=== PATIENT | female | born 1950 | race Caucasian/White ===

== ENCOUNTER 2017-08-13 11:59 | Inpatient (IN) | payer OTHER, MEDICARE ==
[~2017-08-13] VITALS: Ht 165.1 cm; Wt 73.5 kg
--- NOTE | ~2017-08-13 | PROC ---
[address] [address] PROCEDURE REPORT Name: JENNIFER HAJI Room: [address] IN .R.#: [id number] Admission: 08/13/17 Attend Phys: Joe Rainey Discharge: Date of : 50 Report #: [id number] THIS REPORT FOR: //name// For GI report, please see the Provation report in Perceptive 7 content. By: 0644Medical Records Staff [facility] /JANA
[2017-08-13 12:07] VITALS: BP 136/73
[2017-08-13] MEDS ORDERED: IRON325 PO (12:25)
[2017-08-13] MEDS ORDERED: ACID REDUCER20 MG PO (12:25)
[2017-08-13] MEDS ORDERED: SYNTHROID50 MCG PO (12:25)
[2017-08-13] MEDS ORDERED: VITAMINC500 PO (12:26)
[2017-08-13 12:51] LABS: HEMATOCRIT 27.7 % (37.0-47.0); HEMOGLOBIN 8.8 gm/dL (12.0-15.0); MCH 24.6 pg (26.0-34.0); MCHC 31.8 g/dL (28.0-37.0); MCV 77.5 fL (80.0-100.0); MPV 7.5 fl. (7.2-11.1); NUCLEATED RBCS 0 /100WBC; PLATELET COUNT* 371 thou/uL (150-400); RBC 3.57 mil/uL (4.20-5.00); RDW-CV 16.4 % (10.5-14.5); WBC 8.3 thou/uL (4.0-11.0)
[2017-08-13 12:59] LABS: CREATININE 0.8 mg/dL (0.6-1.3)
[2017-08-13 13:04] LABS: ALBUMIN 2.8 g/dL (3.4-5.0); TOTAL BILIRUBIN 0.3 mg/dL (<0.1-1.0); TOTAL PROTEIN 6.7 g/dL (6.4-8.2)
[2017-08-13 13:18] LABS: ABSOLUTE BASOPHILS 0.1 thou/uL (0.0-0.2); ABSOLUTE LYMPHOCYTES 0.7 thou/uL (0.8-5.3); ABSOLUTE MONOCYTES 0.5 thou/uL (0.0-1.2); PLATELET ESTIMATE ADEQUATE
[2017-08-13 13:22] LABS: URINE BILIRUBIN NEGATIVE (Negative); URINE BLOOD NEGATIVE (Negative); URINE CLARITY CLEAR; URINE COLOR YELLOW; URINE GLUCOSE-RANDOM NEGATIVE (Negative); URINE KETONES 1+ (Negative); URINE NITRITE-REFLEX NEGATIVE (Negative); URINE PROTEIN TRACE (Negative); URINE SPECIFIC GRAVITY >= 1.030 (1.005-1.030); URINE UROBILINOGEN 0.2 E.U./dl (0.2-1.0)
[2017-08-13 13:28] LABS: URINE LEUKOCYTES-REFLEX 2+ (Negative)
[2017-08-13 13:35] LABS: CASTS None Seen /LPF (None Seen); CRYSTALS None Seen /LPF (None Seen); MUCUS None Seen strn/LPF (None Seen); SQUAMOUS 0-3 Few /LPF (0-3); URINE RBC 3-10 Few /HPF (0-2)
[2017-08-13 19:47] VITALS: BP 127/64
[2017-08-13] MEDS ORDERED: PROTONIX40 M1 PO (22:32)
[2017-08-14 02:07] LABS: CA 125 29.4 U/mL (0.0-38.1)
[2017-08-14 03:58] VITALS: BP 114/62
--- NOTE | 2017-08-14 04:28 | NUR ---
PT TO FLOOR 1929. ASSESSMENT COMPLETE. PT NPO 0000. PT ON BOWEL PREP FROM ER. DENIES PAIN. PT CURRETLY ON STAND BY ASSIST FOR REPORTS OF DIZZYNESS. MED/SURG STATUS. SEE MAR. SEE CHARTING. VITALS WNL. FALL PRECAUTIONS IN PLACE. HOURLY ROUNDING FOR SAFETY.
[2017-08-14 04:55] LABS: HEMATOCRIT 26.1 % (37.0-47.0); HEMOGLOBIN 8.3 gm/dL (12.0-15.0); MCH 24.6 pg (26.0-34.0); MCHC 31.9 g/dL (28.0-37.0); MCV 77.1 fL (80.0-100.0); MPV 7.7 fl. (7.2-11.1); RBC 3.38 mil/uL (4.20-5.00); RDW-CV 16.5 % (10.5-14.5); WBC 6.9 thou/uL (4.0-11.0)
[2017-08-14 05:14] LABS: CALCIUM 8.5 mg/dL (8.5-10.1); CREATININE 0.8 mg/dL (0.6-1.3); POTASSIUM 3.7 mmol/L (3.5-5.1)
[2017-08-14 05:17] LABS: INR 1.1; PROTIME 10.3 Seconds (9.20-11.50)
[2017-08-14 05:39] LABS: % SATURATION 5 % (20-39); IRON 17 ug/dL (50-175)
[2017-08-14 07:30] VITALS: BP 132/66
--- NOTE | 2017-08-14 11:49 | NUR ---
CM ASSESSMENT: Pt is A&O. Resides at home with dtr. Independent with ADLs, continues to work outside of the home. No DME. No hx of HH or SNF. Planned colonoscopy today. Following for dc needs.
[2017-08-14 12:06] VITALS: BP 132/66
--- NOTE | 2017-08-14 13:45 | NUR ---
RECEIVED PT CARE 0700. PT IS ALERT AND ORIENTED X4. VSS. SHE DENIES ANY SOA. O2 SAT 96% ON ROOM AIR. UP AD SOCRATES IN ROOM WITH BATHROOM PRIVILEDGES. GAIT IS STEADY. PATIENT CONTINUING TO DRINK HER BOWEL PREP THIS AM. GI IN ROOM THIS AM TO SEE PATIENT. NEW ORDERS RECEIVED FOR EGD/COLON TODAY. SOAP SUDS ENEMA GIVEN AND PATIENT'S BOWEL MOVEMENTS ARE LIQUID AND CLEAR PER PATIENT. AM ASSESSMENT CHARTED. MEDS PER MAR. CONSENTS SIGNED AND ARE ON FRONT OF CHART. PATIENT DENIES ANY QUESTIONS OR CONCERNS. PATIENTS DAUGHTER IS AT BEDSIDE AND HELPFUL WITH PATIENTS CARE. PACU TAKING PATIENT AROUND 1400. WILL CONTINUE TO MONITOR.
[2017-08-14 15:29] VITALS: BP 147/77
[2017-08-14 19:50] VITALS: BP 142/61
[2017-08-15 03:54] LABS: ABSOLUTE EOSINOPHILS 0.1 thou/uL (0.0-0.7); ABSOLUTE LYMPHOCYTES 1.1 thou/uL (0.8-5.3); ABSOLUTE MONOCYTES 0.9 thou/uL (0.0-1.2); ABSOLUTE NEUTROPHILS 5.5 thou/uL (1.6-8.1); BASOPHILS 0.5 %; EOSINOPHILS 0.9 %; HEMATOCRIT 25.2 % (37.0-47.0); HEMOGLOBIN 8.1 gm/dL (12.0-15.0); LYMPHOCYTES 14.3 %; MCH 24.6 pg (26.0-34.0); MCHC 32.1 g/dL (28.0-37.0); MCV 76.8 fL (80.0-100.0); MONOCYTES 11.9 %; MPV 7.7 fl. (7.2-11.1); NUCLEATED RBCS 0 /100WBC; PLATELET COUNT* 318 thou/uL (150-400); POLYS 72.4 %; RBC 3.28 mil/uL (4.20-5.00); RDW-CV 16.6 % (10.5-14.5); WBC 7.6 thou/uL (4.0-11.0)
[2017-08-15 04:00] VITALS: BP 116/68
[2017-08-15 04:04] LABS: ALBUMIN 2.3 g/dL (3.4-5.0); CALCIUM 8.4 mg/dL (8.5-10.1); CREATININE 0.7 mg/dL (0.6-1.3); POTASSIUM 3.7 mmol/L (3.5-5.1); TOTAL BILIRUBIN 0.3 mg/dL (<0.1-1.0); TOTAL PROTEIN 5.9 g/dL (6.4-8.2)
--- NOTE | 2017-08-15 05:09 | NUR ---
A&O X4 CALM COOPERITVE, DENIES PAIN, REPORTS ABD DISCOMFORT AT TIMES. UP ADLIB. MEDSURG STATUS. SEE MAR. SEE CHARTING. VITAL WNL. FALL PRECAUTIONS IN PLACE. HOURLY ROUNDING FOR SAFETY.
[2017-08-15 07:30] VITALS: BP 115/65
--- NOTE | 2017-08-15 08:16 | NUR ---
RECIEVED REPORT FROM WILL AND ASSUMED CARE OF PT @ 5285.PT A/O X4,VSS,MED-SURG STATUS,LUNG SOUNDS ARE CLEAR ON ROOM AIR WITH O2 SAT 96%.IV LEFT HAND PATENT WITH NS RUNNING AT 80ML/HR. PT IS CALM AND COOPERATIVE WITH NO C/O PAIN, JUST DISCOMFORT IN ABDOMEN WHEN CHANGING POSITIONS-DOESNT WANT MEDICATION FOR IT. PT IS UP AD SOCRATES IN ROOM TO BATHROOM. PT LEFT RESTING IN BED WITH CALL LIGHT IN PLACE.DISCUSSED PLAN OF CARE WITH UPCOMING SURGERY TODAY AND PT COMMUNICATES UNDERSTANDING. PT MAINTAINS NPO STATUS FOR SURGERY. ABDOMINAL ULTRASOUND COMPLETED.
[2017-08-15 13:30] VITALS: BP 133/81
[2017-08-15 13:51] VITALS: BP 147/77
--- NOTE | 2017-08-15 15:24 | EKG ---
[place] [address] ELECTROCARDIOGRAM REPORT Name: JENNIFER HAJI Room: [address] ADM IN .R.#: [id number] Admission: 08/13/17 Attend Phys: Joe Rainey Discharge: Date of : 50 Report #: [id number] THIS REPORT FOR: //name// [facility] Test Date: 2017-08-15 Test Time: 09:59:08 Pat Name: JENNIFER HAJI Department: Room: [address] Gender: F [employer] Tender: : 1950 Requested By: Romy Yu Order Number: [id number] MD: Neil Juarez Measurements Intervals [place] Rate: 76 P: 44 WI: 150 QRS: 21 QRSD: 94 T: 30 QT: 368 QTc: 414 Interpretive Statements Sinus rhythm Low voltage, precordial leads No previous ECG available for comparison Electronically Signed On 08-15-2017 15:24:37 CDT by Neil Juarez [email or web address] <ELECTRONICALLY SIGNED> By: Neil Juarez MD, [facility] 08/15/17 1524 [id number] [id number] Neil Juarez MD, FACC /EPI
--- NOTE | 2017-08-15 18:29 | NUR ---
VSS.CARDIAC MONITORING IN PLACE WITH NO CHANGES.PT REMAINS ON ROOM AIR.PT PROGRESSING TOWARDS GOALS.SITTER IN PLACE.PT DENIES PAIN THOUGHOUT SHIFT.IV RIGHT HAND D/C DUE TO PT PULLED OUT.IV LEFT HAND D/C DUE TO CLOTTING OFF.PT INOFRMED OF PLAN AND COMMUNICATES UNDERSTANDING.PT REMIANS ANXIOUS,IMPULSIVE,WITH FLIGHT OF THOUGHTS.PT AMBULATES IN ROOM AND TO BATHROOM.HOURLY ROUNDING COMPLETED FOR PT SAFETY.CALL LIGHT IN REACH.WILL CONTINUE TO MONITOR FOR DURATION OF SHIFT.
--- NOTE | 2017-08-15 18:41 | NUR ---
PT STILL IN SURGERY WILL TRANSFER TO ROOM 115 AFTER.SBAR FILLED OUT AND SENT.
[2017-08-15 20:30] VITALS: BP 127/73
[2017-08-16 00:36] VITALS: BP 140/81
[2017-08-16 04:48] LABS: ABSOLUTE LYMPHOCYTES 0.5 thou/uL (0.8-5.3); ABSOLUTE MONOCYTES 0.9 thou/uL (0.0-1.2); ABSOLUTE NEUTROPHILS 7.9 thou/uL (1.6-8.1); BASOPHILS 0.1 %; HEMATOCRIT 23.4 % (37.0-47.0); HEMOGLOBIN 7.3 gm/dL (12.0-15.0); LYMPHOCYTES 5.7 %; MCH 24.5 pg (26.0-34.0); MCHC 31.3 g/dL (28.0-37.0); MCV 78.3 fL (80.0-100.0); MONOCYTES 9.2 %; NUCLEATED RBCS 0 /100WBC; PLATELET COUNT* 291 thou/uL (150-400); RBC 2.99 mil/uL (4.20-5.00); RDW-CV 16.4 % (10.5-14.5); WBC 9.3 thou/uL (4.0-11.0)
[2017-08-16 05:02] LABS: CALCIUM 8.3 mg/dL (8.5-10.1); CREATININE 0.6 mg/dL (0.6-1.3); MAGNESIUM 1.7 mg/dL (1.8-2.4); POTASSIUM 4.1 mmol/L (3.5-5.1); TOTAL BILIRUBIN 0.3 mg/dL (<0.1-1.0); TOTAL PROTEIN 5.4 g/dL (6.4-8.2)
--- NOTE | 2017-08-16 05:48 | NUR ---
PATIENT ALERT AND ORIENTED X4. PAIN CONTROLLED WITH MORPHINE AND TORADOL. TOLERATING CLEAR LIQUIDS. DENIES NAUSEA. GALLEGOS CATHETER PATENT, CLEAR YELLOW RETURN. VITALS STABLE ON 2L O2 NC. LAP SITES TO ABDOMEN DRY AND INTACT. WILL CONTINUE TO MONITOR.
[2017-08-16 08:00] VITALS: BP 121/62
--- NOTE | 2017-08-16 18:29 | NUR ---
PATIENT REMAINED ALERT AND ORIENTED X'S 4. VITAL SIGNS AND SPO2 STABLE. IV CLEAN, FLUIDS INFUSING. PAIN WELL CONTROLLED WITH PAIN MEDS. GALLEGOS PULLED, PATIENT HAS YET TO VOID. TOLERATED DIET, NO NAUSEA AND VOMITING. COMPLETED HOURLY ROUNDING. CALL LIGHT WITHIN REACH. WILL CONTINUE TO MONITOR.
[2017-08-16 20:00] VITALS: BP 117/62
[2017-08-16 23:52] VITALS: BP 104/54
[2017-08-17 04:08] LABS: HEMATOCRIT 23.6 % (37.0-47.0); HEMOGLOBIN 7.4 gm/dL (12.0-15.0); MCH 24.7 pg (26.0-34.0); MCHC 31.3 g/dL (28.0-37.0); MCV 78.8 fL (80.0-100.0); MPV 7.8 fl. (7.2-11.1); RDW-CV 17.1 % (10.5-14.5); WBC 6.2 thou/uL (4.0-11.0)
[2017-08-17 04:30] LABS: CALCIUM 8.2 mg/dL (8.5-10.1); CREATININE 0.8 mg/dL (0.6-1.3); MAGNESIUM 1.9 mg/dL (1.8-2.4); POTASSIUM 3.7 mmol/L (3.5-5.1)
--- NOTE | 2017-08-17 04:34 | NUR ---
PATIENT REMAINS ALERT AND ORIENTED X4 ON HOURLY ROUNDS. DENIES NAUSEA. PAIN CONTROLLED WITH HYDROCODONE AND SOCRATES TORADOL. UP WITH STAND BY ASSIST TO BATHROOM, VOIDING ADEQUATELY. PATIENT STATES THAT SHE IS NOT PASSING GAS YET. TOLERATING FULL LIQUIDS. LAP SITES TO ABDOMEN DRY AND INTACT. VITALS STABLE. CONTINUE TO MONITOR.
[2017-08-17 05:23] VITALS: BP 117/63
[2017-08-17 08:40] VITALS: BP 111/63
[2017-08-17 11:39] LABS: URINE BILIRUBIN NEGATIVE (Negative); URINE BLOOD NEGATIVE (Negative); URINE CLARITY CLEAR; URINE COLOR YELLOW; URINE GLUCOSE-RANDOM NEGATIVE (Negative); URINE KETONES NEGATIVE (Negative); URINE LEUKOCYTES-REFLEX NEGATIVE (Negative); URINE NITRITE-REFLEX NEGATIVE (Negative); URINE PROTEIN NEGATIVE (Negative); URINE UROBILINOGEN 0.2 E.U./dl (0.2-1.0)
--- NOTE | 2017-08-17 18:20 | NUR ---
PATIENT REMAINED ALERT AND ORIENTED X'S 4. VITAL SIGNS AND SPO2 STABLE. IV CLEAN, FLUSHING. VOIDED WITHOUT ISSUE. UA SENT TO LAB. PAIN WELL CONTROLLED WITH PAIN MEDS. PATIENT AMBULATES WELL, 1 ASSIST. TOLERATED DIET, NO NAUSEA AND VOMITING. COMPLETED HOURLY ROUNDING. CALL LIGHT KALA MIN. WILL CONTINUE TO MONITOR.
[2017-08-17 20:00] VITALS: BP 105/61
[2017-08-18] VITALS: BP 102/58
[2017-08-18 03:31] VITALS: BP 110/64
[2017-08-18 04:08] LABS: HEMATOCRIT 21.2 % (37.0-47.0); MCH 24.8 pg (26.0-34.0); MCHC 31.9 g/dL (28.0-37.0); MCV 77.6 fL (80.0-100.0); MPV 7.7 fl. (7.2-11.1); RBC 2.73 mil/uL (4.20-5.00); RDW-CV 16.9 % (10.5-14.5); WBC 4.8 thou/uL (4.0-11.0)
[2017-08-18 05:04] LABS: ALBUMIN 1.9 g/dL (3.4-5.0); CALCIUM 8.1 mg/dL (8.5-10.1); CREATININE 0.8 mg/dL (0.6-1.3); HEMOGLOBIN 6.8 gm/dL (12.0-15.0); MAGNESIUM 1.8 mg/dL (1.8-2.4); POTASSIUM 4.1 mmol/L (3.5-5.1); TOTAL BILIRUBIN 0.2 mg/dL (<0.1-1.0); TOTAL PROTEIN 4.7 g/dL (6.4-8.2)
--- NOTE | 2017-08-18 06:10 | NUR ---
PATIENT HAS REMAINED ALERT AND ORIENTED X 4 THROUGHOUT THE SHIFT AND RESTING QUIETLY ON HOURLY ROUNDS. REPORTING ADEQUATE PAIN RELIEF WITH PRN MEDS. PATIENT HAS PREFERRED PRN HYDROCODONE OVER SCHEDULED TYLENOL OR TORADOL. VITAL SIGNS STABLE. ORAL INTAKE WITHOUT NAUSEA. REPORTS PASSING GAS AND SOME BROWN PARTICLES MAKING TOILET WATER DISCOLORED YESTERDAY AFTERNOON. UP IN HALLS TO AMBULATE. DENIES DIZZINESS. AM HGB 6.8. REPORTED TO ORDERING PHYSICIAN GROUP WITH NEW ORDER FOR TRANSFUSION OF ONE UNIT PRBC'S. BENEFIT/RISK SHEET PROVIDED TO PATIENT. PATIENT WOULD LIKE TO SPEAK TO PHYSICIAN PRIOR TO ACTUAL TRANSFUSION. DR. BELLE HERE THIS AM 0620. UPDATED ON NEW ORDER FROM HOSPITALIST. HE IS CURRENTLY SPEAKING TO PATIENT REGARDING BLOOD. DR. BELLE REQUESTS HOLDING TRANSFUSION UNTIL HE CAN DISCUSS WITH DR. ZAFAR. CONTINUE TO MONITOR. LAP SITES TO ABDOMEN CLEAN AND DRY. CONTINUE TO MONITOR.
[2017-08-18 08:07] VITALS: BP 118/54
[2017-08-18 10:30] LABS: HEMATOCRIT 22.8 % (37.0-47.0); HEMOGLOBIN 7.2 gm/dL (12.0-15.0); MCH 24.8 pg (26.0-34.0); MCHC 31.7 g/dL (28.0-37.0); MCV 78.1 fL (80.0-100.0); MPV 7.4 fl. (7.2-11.1); RBC 2.92 mil/uL (4.20-5.00); RDW-CV 16.5 % (10.5-14.5); WBC 4.8 thou/uL (4.0-11.0)
--- NOTE | 2017-08-18 10:50 | NUR ---
SPOKE WITH DR. MURRAY, ORDERS TO HOLD BLOOD TRANSUSION AT THIS TIME. CBC ORDERED FOR AM.
--- NOTE | 2017-08-18 16:54 | NUR ---
PATIENT REMAINS ALERT AND ORIENTED. PAIN CONTROLLED THIS AFTERNOON WITH IBUPROFEN. PATIENT REFUSES TYLENOL AND TORADOL. ALSO IS RELUCTANT TO TAKE NARCOTIC PAIN MEDICATION. HGB 7.2, TRANSFUSION ON HOLD. CBC IN AM. AMBULATES AD SOCRATES. SCD'S WHILE IN BED. LAP SITES WITH DERMABOND CLOSURE INTACT. UP TO CHAIR. ENCOURAGED USE OF IS. REPORTS MINIMAL FLATUS. NO BM THIS SHIFT. VOIDING PER TOILET. PATIENT DENIES FURTHER NEEDS. CALL LIGHT WITHIN REACH. WILL CONTINUE TO MONITOR.
[2017-08-18 17:23] VITALS: BP 118/68
--- NOTE | 2017-08-18 19:58 | PROC ---
[address] [address] PROCEDURE REPORT Name: JENNIFER HAJI Room: [address] IN M.R.#: [id number] Admission: 08/13/17 Attend Phys: Joe Rainey Discharge: Date of : 50 Report #: [id number] THIS REPORT FOR: //name// CC: Elisa Duran DO DATE OF SERVICE: 08/14/2017 REFERRING PHYSICIAN: Anselmo Stewart DO PROCEDURE PERFORMED: Esophagogastroduodenoscopy; colonoscopy to the hepatic flexure followed by biopsy plus spot ink injection just distal to tumor site plus polypectomy x 4. SEDATION USED: Monitored anesthesia care with 440 propofol. SPECIMEN RETRIEVED: Biopsy of ulcerated necrotic appearing tumor at the level of hepatic flexure; 3 proximal transverse colon polyps; 1 mid transverse colon polyp. INDICATIONS: The patient is a very pleasant 67-year-old white female who presents today for both upper and lower endoscopy to evaluate for source of right upper quadrant pain with associated severe anemia and weight loss. She was seen in consultation earlier today and scheduled for upper and lower endoscopy. The patient has not noted any change in her bowels or bowel frequency, but has had some issues with some abdominal pain. She has undergone endoscopic evaluation of her lower GI tract back in 2004, but her bowel preparation was suboptimal and she was to get another one done shortly thereafter. Unfortunately, this never happened. She is now here with a very what appears to be a large bulky tumor within the hepatic flexure extending into the ascending colon. She presents today for upper and lower endoscopy. See consultation for further details. ALLERGIES: None. MEDICATIONS: Famotidine. She was only recently started on iron supplement. She is also on thyroid replacement. IMAGING: Her CT scan of the abdomen and pelvis revealed a severe mass-like effect, thickening of the ascending colon all the way to the level of hepatic flexure concerning for a mass. LABORATORY DATA: From admission revealed a white count of 8.3, hemoglobin 8.8, [place] [address] PROCEDURE REPORT Name: JENNIFER HAJI Room: [address] IN [facility]#: [id number] Admission: 08/13/17 Attend Phys: Joe Rainey Discharge: Date of : 50 Report #: [id number] platelet count 371,000, MCV is 77.5 and RDW 16.4. Her sodium 139, potassium 4.0, chloride 104, bicarbonate is 26, BUN 17, creatinine 0.8, total bilirubin 0.3, alkaline phosphatase 77, AST 23, ALT 28, albumin is 2.8. CEA is not done. Her TSH is 1.34. DESCRIPTION OF PROCEDURE: Following informed consent and after normal upper endoscopy report, scope was drawn and the patient was repositioned for colonoscopy. Anal inspection and digital exam revealed some mild external skin tags. The Olympus video colonoscope was advanced under direct vision to the level of what appeared to be hepatic flexure, at which point I did not try to advance any further due to the necrotic nature of the tumor as well as evidence for possible partial obstruction. Bowel preparation was good. After taking biopsies from this ulcerated tumor, I then placed spot ink just distal to the tumor within 5 cm of the same for surgical identification purposes. There were 3 proximal transverse colon polyps, all of which were excised and treated by hot snare polypectomy. There was also a mid transverse colon polyp removed by cold snare polypectomy. She had some mild sigmoid diverticulosis, but otherwise the colonoscopy to the level of the hepatic flexure was unremarkable. Scope was withdrawn. The patient was sent to recovery room in stable condition. IMPRESSION: 1. Normal upper endoscopy. 2. Partially obstructing tumor at the level of hepatic flexure, most compatible with colonic adenocarcinoma -- biopsies taken. 3. Status post spot ink injection just distal to the tumor within 5 cm of the same for surgical identification purposes. 4. Proximal transverse colon polyps and mid transverse colon polyp, all excised and retrieved. 5. Mild sigmoid diverticulosis. 6. Anal skin tags. RECOMMENDATIONS: 1. I have discussed the patient's case with Dr. Elisa Duvall and he plans on taking the patient tomorrow for an extended right hemicolectomy. 2. I have also discussed these results with the patient as well as her daughter and they are agreeable to same. 3. Once we have the pathologic specimen from her surgical intervention, Oncology will need to be consulted to determine whether or not she needs to get any type of adjuvant chemotherapy thereafter. She will also need to be on an iron supplement upon discharge for her iron deficient anemia. I have discussed these plans with the patient as well as her daughter and also Dr. Duvall and everyone has agreed with the same. [address] [address] PROCEDURE REPORT Name: JENNIFER HAJI Room: [address] IN M.R.#: [id number] Admission: 08/13/17 Attend Phys: Joe Rainey Discharge: Date of : 50 Report #: [id number] ADDENDUM: It appears the patient may have some calcified gallstones in her gallbladder on CT scan. I have ordered abdominal ultrasound. If that should demonstrate evidence for the same, she may need to have her gallbladder removed at the same time. I will defer that decision to Dr. Duvall. <ELECTRONICALLY SIGNED> By: Braulio Nichols DO 08/18/178 1206 08Braulio Nichols DO /nt
--- NOTE | 2017-08-18 19:58 | CON ---
[address] [address] CONSULTATION Name: JENNIFER HAJI Room: [address] IN .R.#: [id number] Admission: 08/13/17 Attend Phys: Joe Rainey Discharge: Date of : 50 Report #: [id number] THIS REPORT FOR: //name// CC: MAR RO III DO Mar Stewart DICTATED BY: Lakisha Zamudio [facility] DATE OF SERVICE: 08/14/2017 Please note at the time of this dictation, the patient was seen and physically examined by myself. REASON FOR CONSULTATION: Hepatic flexure colon mass. HISTORY OF PRESENT ILLNESS: This is a pleasant 67-year-old female who presented to the Emergency Room with ongoing nausea, which she has had since [place] time. She has been having some off and on abdominal discomfort over the last several months, which she complains is kind of in the right upper quadrant area. She was seen by her PCP and they were concerned that maybe she might have a GI bleed. Given that her past history, which she quit last fall that she was taking 600 mg of ibuprofen on a nightly basis and had been doing that for 10+ years. She has since stopped doing that, but her symptoms continued. It was also noted since around [place] time, she has had a 10-pound weight loss. She states her bowels continued to move daily, soft and formed once a day, however, over the last month she has noticed some maroon color in her stool. Her daughter is at the bedside and she has been noticing that over the last year, she has had increased fatigue and has not been able really to do her yard work and that kind of things over the last several months as well. The patient did have a colonoscopy back in [address] Sims. She had a poor prep and showed diverticulosis at that time and she was to have a repeat colon in 2009, but never had that done. She denies any vomiting. Her nausea is okay at the present time and denies any abdominal discomfort at the time that she has seen. ALLERGIES: No known drug allergies. MEDICATIONS FROM HOME: Famotidine, vitamin C, iron supplement and Synthroid. PAST MEDICAL HISTORY: Hypothyroidism. PAST SURGICAL HISTORY: Negative. FAMILY HISTORY: Noncontributory. SOCIAL HISTORY: Denies any alcohol, tobacco or illegal [place] [address] CONSULTATION Name: RAISSAJENNIFER S Room: [address] IN [facility]#: [id number] Admission: 08/13/17 Attend Phys: Joe Rainey Discharge: Date of : 50 Report #: [id number] REVIEW OF SYSTEMS: Twelve-point review of systems is essentially negative except what is mentioned in the HPI. PHYSICAL EXAMINATION: VITAL SIGNS: Temperature 36.9, pulse 85, respirations 16, blood pressure 132/66. HEART: Regular rate and rhythm. LUNGS: Clear. ABDOMEN: Soft, positive bowel sounds in all 4 quadrants with no masses noted and no tenderness either. LABORATORY DATA: Hemoglobin on admission was 8.3, hematocrit 26.1, white count is 6.9, platelets 353. PT 10.3, INR is 1.1. Iron was 17, TIBC is 324, ferritin is 22. Sodium 141, potassium 3.7, chloride 106, CO2 of 27, BUN is 10, creatinine 0.8, glucose is 83 with a GFR of 72 and her LFTs are completely normal. TSH is 1.4. CT of the abdomen and pelvis showed a mass-like bowel wall thickening with adjacent fat stranding in the ascending colon at the hepatic flexure. IMPRESSION: 1. Abdominal pain. 2. Acute anemia. 3. Hematochezia. 4. Fatigue. 5. Colon mass at the hepatic flexure. 6. NSAID use, chronic. PLAN: 1. EGD colon today with Dr. Nichols. 2. Enema to complete her prep now. 3. Surgery is already on board. 4. Labs pending for tumor markers. 5. Further recommendations to be made after the procedure has been performed. Thank you for allowing us to participate in this patient's care. Please do not hesitate to call with any questions in regard to this consult. ADDENDUM I have seen and examined the patient and agree with plan that has been outlined by our nurse practitioner, Lakisha Zamudio. I have also reviewed the patient's laboratory test and CT scan and very concerned about a very bulky tumor within the right colon going all the way to the level of hepatic flexure. Because of [address] [address] CONSULTATION Name: JENNIFER HAJI Room: [address] IN ..#: [id number] Admission: 08/13/17 Attend Phys: Joe Rainey Discharge: Date of : 50 Report #: [id number] the severity of her anemia we will proceed with upper and lower endoscopy today and make further recommendations thereafter. <ELECTRONICALLY SIGNED> By: Braulio Nichols DO 08/18/17 1958 1230 1428Braulio Nichols DO /nt
--- NOTE | 2017-08-18 19:58 | CON ---
[address] [address] CONSULTATION Name: JENNIFER HAJI Room: [address] IN M.R.#: [id number] Admission: 08/13/17 Attend Phys: Joe Rainey Discharge: Date of : 50 Report #: [id number] THIS REPORT FOR: //name// CC: Elisa Duran DO DATE OF SERVICE: 08/14/2017 ADDENDUM REFERRING PHYSICIAN: Anselmo Stewart DO I have seen and examined the patient and agree with plan that has been outlined by our nurse practitioner, Lakisha Zamudio. I have also reviewed the patient's laboratory test and CT scan and very concerned about a very bulky tumor within the right colon going all the way to the level of hepatic flexure. Because of the severity of her anemia we will proceed with upper and lower endoscopy today and make further recommendations thereafter. <ELECTRONICALLY SIGNED> By: Braulio Nichols DO 08/18/171957 1159 47Braulio Nichols DO /nt
[2017-08-18 20:00] VITALS: BP 119/62
[2017-08-19 04:39] LABS: HEMATOCRIT 22.5 % (37.0-47.0); HEMOGLOBIN 7.2 gm/dL (12.0-15.0); MCH 24.5 pg (26.0-34.0); MCHC 31.8 g/dL (28.0-37.0); MCV 77.1 fL (80.0-100.0); MPV 7.7 fl. (7.2-11.1); RBC 2.92 mil/uL (4.20-5.00); RDW-CV 16.5 % (10.5-14.5); WBC 4.9 thou/uL (4.0-11.0)
[2017-08-19 04:43] VITALS: BP 131/65
[2017-08-19 04:59] LABS: CALCIUM 8.5 mg/dL (8.5-10.1); CREATININE 0.8 mg/dL (0.6-1.3); MAGNESIUM 1.9 mg/dL (1.8-2.4)
--- NOTE | 2017-08-19 05:10 | NUR ---
PATIENT HAS REMAINED ALERT AND ORIENTED X 4 THROUGHOUT THE SHIFT AND RESTING QUIETLY ON HOURLY ROUNDS. UP INDEPENDENTLY IN THE ROOM. REPORTING GOOD PAIN CONTROL WITH ORAL MEDICATIONS. LAP SITES TO ABDOMEN X 4 CLEAN AND DRY. VITAL SIGNS STABLE. NOTED HGB THIS AM STABLE AT 7.2. CONTINUE TO MONITOR.
[2017-08-19 08:45] VITALS: BP 124/64
[2017-08-19] MEDS ORDERED: PHENERGAN 25 MG25 M1 PO (09:01)
[2017-08-19] MEDS ORDERED: COLACE 100 MG100 MG PO (09:01)
[2017-08-19 09:20] VITALS: BP 124/64
[2017-08-19] MEDS ORDERED: HYDROCODONE-AP1 EAC6 PO (09:27)
[2017-08-19] MEDS ORDERED: MIRALAX17 GM PO (09:28)
--- NOTE | 2017-08-19 12:26 | NUR ---
PATIENT DISCHARGED TO HOME AT THIS TIME. SCRIPTS GIVEN. PATIENT AND DAUGHTER VERBALIZE UNDERSTANDING OF DC INSTRUCTIONS. IV REMOVED. PATIENT SHOWERED. WILL F/U WITH DR. ZAFAR END OF THIS WEEK.
--- NOTE | 2017-08-19 13:11 | S ---
[address] [address] SURGICAL PATH RPT PROCEDURE Name: RAISSAJENNIFER Kristina Room: [address] IN .R.#: [id number] Admission: 08/13/17 Date of : 50 Discharge: Report #: [id number] Path Case #: [id number] PATHOLOGY REPORT COLLECTION DATE: 08/14/2017 RECEIVED DATE: 08/15/2017 SUBMITTING PHYS: Dr. Braulio Nichols OTHER PHYS: Dr. Anselmo Butts * AMENDED (CORRECTED) REPORT * SPECIMEN(S) RECEIVED: A.Ulcerated tumor at hepatic flexure B.Proximal transverse colon polyps C.Mid transverse colon polyp D.Rectal polyps, 2 * * * * * * * * * * * * FINAL DIAGNOSIS: AMENDMENT DATE: 08/19/2017 This report is amended to correct (at the client's request) the specimen label for specimen B originally labeled "Three polyps from proximal ascending colon" to "Proximal transverse colon polyps". The label will be changed in the gross description as well as the final diagnosis. The remainder of the report is unchanged. (pit; 08/19/2017) B. Proximal transverse colon polyps: - Multiple fragments of tubular adenoma(s) and of hyperplastic polyp(s), negative for high-grade dysplasia. A. Ulcerated tumor at hepatic flexure: - ULCERATED ADENOCARCINOMA, MODERATE TO POORLY DIFFERENTIATED (SEE COMMENT). B. Three polyps from proximal ascending colon: - Multiple fragments of tubular adenoma(s) and of hyperplastic polyp(s), negative for high-grade dysplasia. C. Mid transverse colon polyp: - Inflammatory mucoid debris without colonic tissue identified. D. Rectal polyps, two: - Two hyperplastic polyps. COMMENT: Specimen A is reviewed with Dr. Nikita Angel who agrees with the diagnosis. Dr. Nichols notified at approximately 1330 on 08/16/2017. (CHATO:pit; 08/16/2017) PATHOLOGIST: Gio [place] [address] SURGICAL PATH RPT PROCEDURE Name: JENNIFER HAJI Room: [address]#: [id number] Admission: 08/13/17 Date of : 50 Discharge: Report #: [id number] Path Case #: [id number] REPORT ELECTRONICALLY SIGNED BY: Gio Diaz M.D. DATE/TIME: 08/19/2017 13:10 * * * * * * * * * * * * GROSS PATHOLOGY: B. The specimen is received in formalin, labeled "Jennifer Haji, proximal transverse colon polyps", are three patel soft tissues ranging from 0.3 cm up to 0.5 cm in greatest dimension and measuring 0.5 x 0.5 x 0.1 cm in aggregate, entirely submitted in B1. A. The specimen is received in formalin, labeled "Jennifer Haji, ulcerated tumor at hepatic flexure", are several patel soft tissues that aggregately measure 0.5 x 0.3 x 0.1 cm, entirely submitted in A1. B. The specimen is received in formalin, labeled "Jennifer Haji, three polyps from proximal ascending colon", are three patel soft tissues ranging from 0.3 cm up to 0.5 cm in greatest dimension and measuring 0.5 x 0.5 x 0.1 cm in aggregate, entirely submitted in B1. C. The specimen is received in formalin, labeled "Jennifer Haji, mid transverse colon polyp", is a yellow mucoid material measuring 0.6 x 0.3 x 0.1 cm. The contents of the container is filtered into a biopsy bag and entirely submitted in C1. Discrete soft tissue is not identified. D. The specimen is received in formalin, labeled "Jennifer Haji, rectal polyps (2)", are two patel soft tissues 0.4 and 0.5 cm in greatest dimension, entirely submitted in D1. (SWS; 08/15/2017) CLINICAL HISTORY: None provided INITIAL CPT CODE(S): A; 09251 B; 47207 C; 73685 D; 50826 Professional services performed by [facility] [place] [address] Technical services performed by [facility] at [address] [place] [address], [address] [address]. [facility] [place] [address] SURGICAL PATH RPT PROCEDURE Name: JENNIFER HAJI Room: [address] IN ..#: [id number] Admission: 08/13/17 Date of : 50 Discharge: Report #: [id number] Path Case #: [id number] PHONE: [phone] DIRECTOR: Stewart Souza M.D. * * * END OF REPORT * * *
--- NOTE | 2017-08-20 15:42 | S ---
[place] [address] SURGICAL PATH RPT PROCEDURE Name: JENNIFER HAJI Room: [address] IN M.R.#: [id number] Admission: 08/13/17 Date of : 50 Discharge: 08/19/17 Report #: [id number] Path Case #: [id number] PATHOLOGY REPORT COLLECTION DATE: 08/15/2017 RECEIVED DATE: 08/16/2017 SUBMITTING PHYS: Dr. Elisa Duvall OTHER PHYS: Dr. Anselmo Butts ADDENDUM REPORT (Order Date: 08/20/2017 13:04) ADDENDUM COMMENT: Specimen: Formalin fixed paraffin embedded tissue Specimen ID: [id number] Block A8 Reason for testing: To evaluate for evidence of defective mismatch repair proteins. Method: Immunohistochemical staining for the presence or absence of protein expression of one or more of the following MMR protein markers: MLH1, MSH2, MSH6 and PMS2. Tumor type: Colonic adenocarcinoma Results: MLH1 - Lost MSH2 - Preserved MSH6 - Preserved PMS2 - Lost Mismatch Repair Status: MMR Deficient (MMR-D) Interpretation: The absence of expression for one or more MMR protein markers within tumor cells is suggestive for defective mismatch repair function often associated with microsatellite instability (MSI). MMR testing by IHC is a screening test and MMR-D cases require confirmation and additional workup by molecular based methodologies. Suggest clinical correlation and follow up to establish the need for potential genetic testing, recurrence risk evaluation and treatment options. These test results are designed for screening purposes only and are useful tools in identifying cancer patients that are more likely to have Baptiste Syndrome related diagnoses. Tests should be interpreted in the context of clinical findings, family history and laboratory data. Abnormal IHC results for MMR protein expression are not considered diagnostic for Baptiste Syndrome. (CHATO:charles; 08/20/2017) Professional services performed [place] [address] Technical services performed by [facility] at [address] [place] [address], [place] [address] SURGICAL PATH RPT PROCEDURE Name: JENNIFER HAJI Room: [address] IN ..#: [id number] Admission: 08/13/17 Date of : 50 Discharge: 08/19/17 Report #: [id number] Path Case #: [id number] [address], [place] [address]. ELECTRONICALLY SIGNED BY: Gio Diaz M.D. DATE/TIME:08/20/2017 15:42 SPECIMEN(S) RECEIVED: A.Right colon/transverse colon * * * * * * * * * * * * FINAL DIAGNOSIS: Right colon/transverse colon: - ULCERATED COLONIC ADENOCARCINOMA, MODERATE TO POORLY DIFFERENTIATED, FORMING A MASS MEASURING 7.3 X 7.0 X 3.0 CM IN DISTAL CECUM/PROXIMAL ASCENDING COLON, WITH TRANSMURAL INVASION INTO SUBSEROSA WITHOUT INVOLVING FREE SEROSAL SURFACE, ALL SURGICAL MARGINS FREE OF INVOLVEMENT. - ONE OF TWENTY-NINE PERICOLIC LYMPH NODES WITH METASTATIC ADENOCARCINOMA (06/03). (SEE COMMENT) SYNOPTIC CANCER STAGING REPORT SPECIMEN Specimen: Terminal ileum Cecum Appendix Ascending colon Transverse colon Procedure: Right hemicolectomy Macroscopic Intactness of Mesorectum: Not applicable TUMOR Primary Tumor Site: Right (ascending) colon Histologic Type: Adenocarcinoma Histologic Grade: High-grade (poorly differentiated to undifferentiated) Tumor Size: Greatest dimension (cm): 7.3 Additional Dimension (cm): 7 Additional Dimension (cm): 3 Tumor Deposits: Not identified Tumor Extent Site(s) of Direct Extent of Tumor: Cecum Right (ascending) colon Microscopic Tumor Extension: Tumor invades through the muscularis propria into the subserosal adipose tissue or the nonperitonealized pericolic or perirectal soft tissues but does not extend to the serosal surface Macroscopic Tumor Perforation: Not Identified Accessory Tumor Findings Lymph-Vascular Invasion: [place] [address] SURGICAL PATH RPT PROCEDURE Name: JENNIFER HAJI Room: [address] IN .R.#: [id number] Admission: 08/13/17 Date of : 50 Discharge: 08/19/17 Report #: [id number] Path Case #: [id number] Small vessel lymph-vascular invasion Histologic Features Suggestive of Microsatellite Instability Intratumoral Lymphocytic Response (tumor-infiltrating lymphocytes): Mild to moderate (0-2 per high-power [X400] field) Peritumor Lymphocytic Response (Crohn-like response): Mild to moderate Tumor Subtype and Differentiation: Mucinous tumor component Specify Percentage of Mucinous Tumor Component: 5 High histologic grade (poorly differentiated) Perineural Invasion: Not identified Type of Polyp in Which Invasive Carcinoma Arose: None identified MARGINS All margins uninvolved by invasive carcinoma Distance of Invasive Carcinoma from Closest Margin: Specify (cm): 1.7 Specify Margin: Circumferential (Radial) or Mesenteric For Resection Specimens Only Proximal Margin: Uninvolved by invasive carcinoma Distance of Tumor from Margin: Specify (cm): 17.3 Distal Margin: Uninvolved by invasive carcinoma Distance of Tumor from Margin (required only for rectal tumors): Specify (cm): 23.5 Circumferential (Radial) Margin: Not applicable Mesenteric Margin: Uninvolved by invasive carcinoma Distance of Tumor from Margin: Specify (cm): 1.7 LYMPH NODES Regional Lymph Nodes: Number of Lymph Nodes Examined: Specify number: 29 Number of Lymph Nodes Involved: Specify number: 1 STAGE (PTNM) Primary Tumor (pT): pT3: Tumor invades through the muscularis propria into pericolorectal tissues Regional Lymph Nodes (pN): pN1a: Metastasis in 1 regional lymph node ADDITIONAL FINDINGS Additional Pathologic Findings: Other: benign appendix and terminal ileum COMMENT: Lymphovascular invasion is identified in tissues near the invasive tumor front (A10) and in many areas the tumor front shows [facility] [address] [place] [address] SURGICAL PATH RPT PROCEDURE Name: JENNIFER HAJI Room: [address] IN Melissa.#: [id number] Admission: 08/13/17 Date of : 50 Discharge: 08/19/17 Report #: [id number] Path Case #: [id number] separate small nests of malignant/infiltrative cells. A single lymph node shows metastatic involvement where the metastasis spans 0.6 cm and is confined to the lymph node (A19). Mismatch repair/microsatellite instability testing will be performed on A8 and will be the subject of an addendum report. (CHATO:du; 08/19/2017) PATHOLOGIST: Gio Diaz M.D. REPORT ELECTRONICALLY SIGNED BY: Gio Diaz M.D. DATE/TIME: 08/19/2017 16:53 * * * * * * * * * * * * GROSS PATHOLOGY: Received in formalin labeled "Jennifer Haji, right colon/transverse colon" is a previously-opened segment of bowel, which is closed with a staple line connecting the proximal and distal margins in a circular fashion. The specimen includes a portion of terminal ileum (16.8 x 2.2 cm), cecum (11.5 x 7.0 x 5.0 cm), vermiform appendix (4.7 x 0.7 cm), and a portion of proximal colon (19.3 x 3.3 cm). A portion of omentum is attached to the distal aspect of the portion of colon (31.5 x 9.6 x 1.7 cm). The terminal ileum and colon serosa is pink-patel and smooth with a firm puckered area on the distal cecum/proximal colon, which measures 6.0 x 4.7 cm. The omentum is yellow-patel and finely lobulated, and is sectioned to reveal no masses or tumor nodules. The appendix is removed and serially sectioned to reveal no perforations or fecaliths, and a luminal diameter of 0.3 cm. The terminal ileum mucosa is pink-patel with unremarkable folding, and the cecal and proximal colon mucosa is pink-patel with slightly dilated but otherwise unremarkable folding. No polyps, perforation, or diverticula are identified. In the distal aspect of the cecum/proximal colon (corresponding with the puckered area on the serosa) there is a patel-white ulcerated mass which measures 7.0 cm in length and 7.3 cm in width. The mass is located 2.2 cm from the ileocecal valve, 4.5 cm from the appendiceal orifice, 17.3 cm from the proximal mucosal margin, 23.5 cm from the distal mucosal margin, and 1.7 cm from the closest mesenteric margin. Upon sectioning, the mass has a greatest third dimension of 3.0 cm. The mass abuts the serosa, and also invades into the pericolonic fat. Possible tattoo ink is located adjacent to the mass. The pericolonic fat is sectioned, and multiple lymph nodes are identified which range from 0.2-1.0 cm in greatest dimension. The serosa deep to the mass is inked black. Pearl Fisherman sections of the specimen are submitted as follows: A1 proximal margin A2 distal margin A3 closest mesenteric margin to mass A4 apprenticeship training representative omentum A5 apprenticeship training [place] [address] SURGICAL PATH RPT PROCEDURE Name: JENNIFER HAJI Room: [address] M.R.#: [id number] Admission: 08/13/17 Date of : 50 Discharge: 08/19/17 Report #: [id number] Path Case #: [id number] A6 apprenticeship training representative appendix and one half of the distal tip A7 mass to serosa A8 mass to uninvolved cecal mucosa A9 mass to uninvolved proximal colon mucosa A10-A11 mass with invasion into pericolonic fat A12-A13 additional sections of mass A14 section showing possible tattoo ink A15-A19 two bisected lymph node in each cassette, one inked black A20-A21 three bisected lymph nodes in each cassette, inked black, blue, and green A22-A23 multiple whole lymph nodes in each cassette A24-A26 one lymph node in each cassette, trisected [place] [place] 08/18/2017[place] CLINICAL HISTORY: Colon cancer, anemia. INITIAL CPT CODE(S): A; 87893, 94717, 61081, 67176, 44519 Professional services performed by [facility] at [address], [place] [address] Technical services performed by [facility] at [address] [place] [address], [address], [place] [address]. [facility] [address] [place] [address] PHONE: [phone] DIRECTOR: Stewart Souza M.D. * * * END OF REPORT * * *
--- NOTE | 2017-08-30 05:47 | OP ---
[facility] [address] [place] [address] OPERATIVE REPORT Name: JENNIFER HAJI Room: [address] IN M.R.#: [id number] Admission: 08/13/17 Attend Phys: Joe Rainey Discharge: 08/19/17 Date of : 50 Report #: [id number] THIS REPORT FOR: //name// CC: Dr. Benjamín Cline DATE OF SERVICE: 08/15/2017 PREOPERATIVE DIAGNOSIS: Right colon cancer. POSTOPERATIVE DIAGNOSIS: Right colon cancer. PROCEDURE: 1. Laparoscopic right hemicolectomy. 2. Angiographic evaluation of colonic flap. SURGEON: Elisa Duvall M.D. SEED CONE PICKER: Jennifer Mays DO ESTIMATED BLOOD LOSS: 20 mL. COMPLICATIONS: None. SPECIMENS: Terminal ileum, right colon and transverse colon. ANESTHESIA: GET. FINDINGS: Tattoo at hepatic flexure, large tumor from hepatic flexure down towards cecum with good margins. DESCRIPTION OF PROCEDURE: Fully informed consent obtained preoperatively, full discussion of risks, benefits and alternatives, questions answered. The patient understood risk of bleeding, infection, reoperation, injury to surrounding structures, anastomotic leak, potential need for temporary or permanent stoma and catastrophic complications up to and including cardiopulmonary failure and . The patient still wished to proceed. She was taken to the operating room, prepped and draped in standard sterile fashion. Timeout performed with all in agreement. We next waited 10 minutes and then antibiotics were given. We made an incision following that. A 12 mm incision was made around the umbilicus. I used open Davey technique and entered safely into the abdomen. We insufflated and inspected around the abdomen. I saw no evidence of any pathology or evidence of mets in the liver, abdominal wall, omentum or pelvis. The tattoo was noted at hepatic flexure and there appeared to be enlargement or [facility] [address] [place] [address] OPERATIVE REPORT Name: JENNIFER HAJI Room: [address]#: [id number] Admission: 08/13/17 Attend Phys: Joe Rainey Discharge: 08/19/17 Date of : 50 Report #: [id number] dilation of the cecum, likely due to impending obstruction. Cecum was grasped and elevated towards the right anterior abdominal wall. Ileocolic pedicle was placed taut. I visualized the duodenal sweep and sweep of the vena cava. I scored over the peritoneum overlying the ileocolic pedicle and circumferentially dissected until only the artery and vein were visualized. Clips were placed in these proximally and then laparoscopic 5 mm EnSeal device used to take them proximally. Next, we worked in medial to lateral fashion, sweep and drove this fascia posteriorly and worked out laterally beyond Gerota fascia, and then the retroperitoneum superiorly, dropping the duodenum until we got as far as the medial edge of the pancreas medial to the duodenum. We entered through the peritoneum beneath the paracolic ligament. Next, I turned my attention towards the mesoappendix. This was taken down with the EnSeal. I at the pelvic brim. Ureter was identified and protected for the remainder of the case. Then, I worked up. I actually did take some tissue into the anterior lateral abdominal wall to make sure there was a margin as there was potential for tumor to have some involvement with this peritoneum and therefore I did go widely around it as opposed to trying to create a false plane. After here, I next turned my attention to the white line of Toldt, laterally and completed this division up to the hepatocolic ligaments. They were then taken. Duodenum was again visualized while taking the hepatocolic ligaments. Next, I the omentum off the transverse colon at the far left lateral portion of it, entered into the lesser sac of the left lateral portion and divided the omentum leaving some on for the right hepatic flexure portion. Stomach was visualized and protected. Next, we made our extraction site and desufflated. We pulled out the colon through an Conner wound protector. I selected my portion on the small bowel approximately 10-15 cm proximal to the ileocecal valve and my distal transection site in the mid distal transverse colon. We used a vessel sealer to take remainder of the mesentery from our points of intended transection down to where we took the ileocolic fat pedicle. The slow pradhan were used to take the middle colic vessel. Next, after taking up these portions we used 3-0 Vicryl to approximate the antimesenteric borders of the colon and TI in [id number] antiperistaltic fashion. Next, wounds were protected. We made small enterotomies on the specimen side and fired the 75 LAVELLE through the colon to create a common channel. Next, we used Firefly, gave 3 mL ICG and visualized and we saw a clear demarcation and perfusion with our intended anastomosis entirely within this well perfused area. Allis clamps were used to bring the common enterotomy together and a TIA 90 was compressed to full thickness and fired across to close the common channel, 3-0 Vicryl was used to run under the staple line and appeared to be hemostatic. Additional serosal bites were taken as well as omentum tacked over the anastomosis. It was replaced back into the abdomen. We of course changed gown and gloves after closing the common enterotomy. We reinsufflated and reinspected. I saw no evidence of any ongoing bleeding. Then, I removed the trocars. We closed the fascia with 0 PDS and then 3-0 Vicryl was used to approximate the tissue and 4-0 Monoc[place] [address] OPERATIVE REPORT Name: JENNIFER HAJI Room: [address]#: [id number] Admission: 08/13/17 Attend Phys: Joe Rainey Discharge: 08/19/17 Date of : 50 Report #: [id number] Dermabond applied over skin. At the end of the procedure sponge, needle and instrument counts were correct x 2. The patient tolerated it well. <ELECTRONICALLY SIGNED> By: Elisa Duvall MD 08/30/17 0547 [id number] 1905Dahafsa Duvall MD /ovidio
== END 2017-08-19 12:26 | disposition home or self-care (01) | DRG 330 ==
LOC: M.ERS 11:59 → M.TBA-ER 15:55 → M.2W 15:55 → M.ORTHSURG 08-15 19:11
PROVIDERS: Internal Medicine; Internal Medicine Gastroenterology; Personal Emergency Response Attendant; Surgery; ADMIT Internal Medicine
DX: C18.9 Malignant neoplasm of colon, unspecified (principal); K56.609 Unspecified intestinal obstruction, unspecified as to partial versus complete obstruction; N39.0 Urinary tract infection, site not specified; D62 Acute posthemorrhagic anemia; K92.1 Melena; E44.0 Moderate protein-calorie malnutrition; E03.9 Hypothyroidism, unspecified; K80.80 Other cholelithiasis without obstruction; D64.9 Anemia, unspecified; K63.5 Polyp of colon; Z83.3 Family history of diabetes mellitus; Z79.1 Long term (current) use of non-steroidal anti-inflammatories (NSAID)

== ENCOUNTER → 2017-08-22 | Outpatient (CLI) | payer OTHER, MEDICARE ==
[~2017-08-22] MED LIST: ACID REDUCER20 MG PO; COLACE 100 MG100 MG PO; HYDROCODONE-AP1 EAC6 PO; IRON325 PO; MIRALAX17 GM PO; PHENERGAN 25 MG25 M1 PO; PROTONIX40 M1 PO; SYNTHROID50 MCG PO; VITAMINC500 PO
[2017-08-22 15:35] LABS: ABSOLUTE BASOPHILS 0.1 thou/uL (0.0-0.2); ABSOLUTE EOSINOPHILS 0.2 thou/uL (0.0-0.7); ABSOLUTE MONOCYTES 0.5 thou/uL (0.0-1.2); ABSOLUTE NEUTROPHILS 4.7 thou/uL (1.6-8.1); BASOPHILS 1.1 %; EOSINOPHILS 2.6 %; HEMATOCRIT 29.2 % (37.0-47.0); HEMOGLOBIN 9.1 gm/dL (12.0-15.0); MCH 24.1 pg (26.0-34.0); MCHC 31.2 g/dL (28.0-37.0); MCV 77.5 fL (80.0-100.0); MONOCYTES 7.5 %; MPV 7.4 fl. (7.2-11.1); NUCLEATED RBCS 0 /100WBC; PLATELET COUNT* 471 thou/uL (150-400); POLYS 72.8 %; RBC 3.77 mil/uL (4.20-5.00); RDW-CV 16.7 % (10.5-14.5); WBC 6.4 thou/uL (4.0-11.0)
[2017-08-22 15:42] LABS: ALBUMIN 2.9 g/dL (3.4-5.0); CALCIUM 9.1 mg/dL (8.5-10.1); TOTAL BILIRUBIN 0.2 mg/dL (<0.1-1.0); TOTAL PROTEIN 7.2 g/dL (6.4-8.2)
== END ==
LOC: M.LAB 15:14
PROVIDERS: Surgery
DX: Z90.49 Acquired absence of other specified parts of digestive tract (principal)

== ENCOUNTER → 2021-06-30 | Outpatient (CLI) | payer MEDICARE | LOC: M.ULTRA 10:20 | PROVIDERS: ATTEND Internal Medicine Hematology & Oncology | DX: C18.3 Malignant neoplasm of hepatic flexure (principal); N88.8 Other specified noninflammatory disorders of cervix uteri; R93.89 Abnormal findings on diagnostic imaging of other specified body structures ==